=== PATIENT | female | born 1950 | race African-American/Black ===

== ENCOUNTER 2017-04-23 16:54 | Emergency (ER) | payer MEDICARE, MEDICAID ==
[~2017-04-23] VITALS: Ht 157.5 cm; Wt 88.0 kg
[~2017-04-23 16:54] MED LIST: AMLO10TA80 PO; ATOR20TA PO; BECL8.7A6 IH; CALC0.253 PO; CEPH-569 PO; DOCU-150 PO; NEPVIT PO; OMEP20CA10 PO; SEVE800T PO
[2017-04-23 18:30] LABS: HEMATOCRIT. 35.6 % (36.0-48.0); HEMOGLOBIN. 11.3 g/dL (12.0-16.0); MEAN CORPUSCULAR HEMOGLOBIN 27.9 pg (28.0-32.0); MEAN CORPUSCULAR VOLUME 87.7 fL (81.0-99.0); MEAN PLATELET VOLUME 8.1 fl (7.4-10.4); PLATELET 271 x1000/uL (130-400); RED BLOOD CELL COUNT 4.06 mill/uL (4.2-5.4); RED CELL DISTRIBUTION WIDTH 19.5 % (11.6-14.6)
[2017-04-23 18:33] LABS: CHLORIDE 99 mEq/L (98-107)
[2017-04-23 18:38] LABS: CARBON DIOXIDE 27 mEq/L (21-32)
[2017-04-23 18:58] LABS: PLATELET ESTIMATE NORMAL
[2017-04-23 21:53] VITALS: BP 154/89
== END 2017-04-23 21:54 | disposition home or self-care (01) ==
LOC: ER 19:31
DX: I12.0 Hypertensive chronic kidney disease with stage 5 chronic kidney disease or end stage renal disease (principal); N18.6 End stage renal disease; E78.00 Pure hypercholesterolemia, unspecified; R51 Headache; Z88.0 Allergy status to penicillin; Z88.1 Allergy status to other antibiotic agents; Z88.5 Allergy status to narcotic agent; Z79.899 Other long term (current) drug therapy; Z99.2 Dependence on renal dialysis
CPT/HCPCS: 36415; 70450; 80053; 85025; 93005; 99285

== ENCOUNTER 2017-05-12 07:01 | Emergency (ER) | payer MEDICARE, MEDICAID ==
[~2017-05-12] VITALS: Ht 157.5 cm; Wt 91.2 kg
[2017-05-12 07:51] LABS: HEMATOCRIT. 36.7 % (36.0-48.0); HEMOGLOBIN. 11.7 g/dL (12.0-16.0); MEAN CORPUSCULAR HEMOGLOBIN 27.9 pg (28.0-32.0); MEAN CORPUSCULAR VOLUME 87.8 fL (81.0-99.0); PLATELET 209 x1000/uL (130-400); RED BLOOD CELL COUNT 4.18 mill/uL (4.2-5.4); RED CELL DISTRIBUTION WIDTH 18.8 % (11.6-14.6)
[2017-05-12 07:57] LABS: PROTHROMBIN TIME 10.6 sec
[2017-05-12 07:59] LABS: CARBON DIOXIDE 24 mEq/L (21-32); CHLORIDE 104 mEq/L (98-107)
[2017-05-12 08:04] LABS: TROPONIN I 0.05 ng/mL (0.00-0.04)
[2017-05-12 08:21] LABS: PLATELET ESTIMATE NORMAL
[2017-05-12] MEDS ORDERED: SODIUM BICARBONATE 4% (2.4MEQ) 5ML VIAL IV ONE (08:31)
[2017-05-12] MEDS ORDERED: LIDOCAINE HCL 1% 20ML VIAL (Pyxis) INJ ONE (08:31)
[2017-05-12 09:55] VITALS: BP 140/100
== END 2017-05-12 09:58 | disposition home or self-care (01) ==
LOC: ER 07:02
DX: Z99.2 Dependence on renal dialysis (principal); I10 Essential (primary) hypertension; E78.00 Pure hypercholesterolemia, unspecified; J45.909 Unspecified asthma, uncomplicated; Z88.0 Allergy status to penicillin; Z88.1 Allergy status to other antibiotic agents; Z88.6 Allergy status to analgesic agent
CPT/HCPCS: 36415; 71010; 80053; 82962; 83880; 84484; 85025; 85610; 93005; 99285; J1642; J7050; J3490

== ENCOUNTER 2019-02-04 14:35 | Emergency (ER) | payer MEDICARE, MEDICAID ==
[~2019-02-04] VITALS: Ht 157.5 cm; Wt 98.0 kg
[~2019-02-04 14:35] MED LIST changes: +ASPI-1159 PO; +BENA20TA10 PO; +REN800 PO; -SEVE800T PO
[2019-02-04] MEDS ORDERED: HYDROCODONE/ACETAMINOPHEN 5/325MG TABLET PO ONE (15:15)
[2019-02-04 16:07] LABS: BASOPHILS % 1.1 % (0.0-2.0); EOSINOPHILS % 12.4 % (0.0-5.0); HEMATOCRIT. 35.3 % (36.0-48.0); HEMOGLOBIN. 11.2 g/dL (12.0-16.0); LYMPHOCYTES % 34.5 % (20.0-50.0); MEAN CORPUSCULAR HEMOGLOBIN 30.3 pg (28.0-32.0); MEAN CORPUSCULAR VOLUME 95.6 fL (81.0-99.0); MEAN PLATELET VOLUME 8.5 fl (7.4-10.4); MONOCYTES % 10.8 % (2.0-8.0); NEUTROPHILS % 41.2 % (40.0-76.0); PLATELET 223 x1000/uL (130-400); RED BLOOD CELL COUNT 3.69 mill/uL (4.2-5.4); RED CELL DISTRIBUTION WIDTH 15.6 % (11.6-14.6)
[2019-02-04 16:12] LABS: CHLORIDE 101 mEq/L (98-107)
[2019-02-04 16:28] LABS: INR 1.1; PROTHROMBIN TIME 10.8 sec (9.1-11.1)
[2019-02-04 18:52] VITALS: BP 149/70
== END 2019-02-04 19:31 | disposition home or self-care (01) ==
LOC: ER 15:49
DX: R10.31 Right lower quadrant pain (principal); I12.0 Hypertensive chronic kidney disease with stage 5 chronic kidney disease or end stage renal disease; N18.6 End stage renal disease; J45.909 Unspecified asthma, uncomplicated; E78.00 Pure hypercholesterolemia, unspecified; Z85.44 Personal history of malignant neoplasm of other female genital organs; Z98.890 Other specified postprocedural states; Z87.891 Personal history of nicotine dependence; Z99.2 Dependence on renal dialysis; Z88.3 Allergy status to other anti-infective agents; Z88.5 Allergy status to narcotic agent; Z88.0 Allergy status to penicillin; Z79.82 Long term (current) use of aspirin
CPT/HCPCS: 36415; 74176; 99284